=== PATIENT | male | born 1995 | race Caucasian/White ===

== ENCOUNTER 2024-06-23 17:06 | Inpatient (IN) | payer OTHER ==
[2024-06-23 17:33] VITALS: BMI 20.2
[2024-06-23] MEDS ORDERED: BENZONATATE 200 MG CAPSULE PO PRN (18:05)
[2024-06-23] MEDS ORDERED: POLYETHYLENE GLYCOL (HEALTHYLAX) 3350 17 GM PACKET PO PRN (18:05)
[2024-06-23] MEDS ORDERED: hydrOXYzine PAMOATE 25 MG CAPSULE (FP) PO PRN (18:05)
[2024-06-23] MEDS ORDERED: NALOXONE (NARCAN) HCL 4 MG/0.1 ML SPRAY NS PRN (18:05)
[2024-06-23] MEDS ORDERED: guaiFENesin 600 MG TABLET.ER (FP) PO PRN (18:05)
[2024-06-23] MEDS ORDERED: IBUPROFEN 400 MG TABLET (FP) PO PRN (18:05)
[2024-06-23] MEDS ORDERED: methaDONE HCL 10 MG TABLET (FOR DETOX USE ONLY) PO PRN (18:05)
[2024-06-23] MEDS ORDERED: IBUPROFEN 600 MG TABLET (FP) PO PRN (18:05)
[2024-06-23] MEDS ORDERED: MAG HYDROX/AL HYDROX/SIMETH 30 ML UNIT-DOSE CUP PO PRN (18:05)
[2024-06-23] MEDS ORDERED: NICOTINE POLACRILEX 2 MG GUM BUC PRN (18:05)
[2024-06-23] MEDS ORDERED: DICYCLOMINE HCL 10 MG CAPSULE PO PRN (18:05)
[2024-06-23] MEDS ORDERED: ACETAMINOPHEN 325 MG TABLET (FP) PO PRN (18:05)
[2024-06-23] MEDS ORDERED: BENZOCAINE/MENTHOL (CHLORASEPTIC ) LOZENGE MM PRN (18:05)
[2024-06-23] MEDS ORDERED: ONDANSETRON *ODT* 4 MG TABLET SL PRN (18:05)
[2024-06-23] MEDS ORDERED: LOPERAMIDE HCL 2 MG CAPSULE PO PRN (18:05)
[2024-06-23] MEDS ORDERED: MAGNESIUM HYDROX 2400MG/30ML ORAL SUSPENSION 30 ML CUP PO PRN (18:05)
[2024-06-23] MEDS ORDERED: BISMUTH SUBSALICYLATE 524 MG/30 ML PO PRN (18:05)
[2024-06-23] MEDS ORDERED: methaDONE HCL 10 MG TABLET (FOR DETOX USE ONLY) ONE (20:13)
[2024-06-23] MEDS: methaDONE HCL 10 MG TABLET (FOR DETOX USE ONLY) PO ONE (20:24)
[2024-06-23] MEDS: MELATONIN 5 MG TABLETS PO SCH (21:45)
[2024-06-23] MEDS: THIAMINE 100 MG TABLET PO SCH (21:45)
[2024-06-23] MEDS: diazePAM 5 MG TABLET PO PRN (21:47)
[2024-06-23] MEDS: cloNIDine HCL 0.1 MG TABLET PO PRN (21:47)
[2024-06-23] MEDS: METHOCARBAMOL 500 MG TABLET PO PRN (21:47)
[2024-06-24] MEDS: ALBUTEROL SO4 HFA INHALER IH SCH (07:44)
[2024-06-24] MEDS ORDERED: CARVEDILOL 6.25 MG TABLET (FP) PO SCH (10:00)
[2024-06-24 10:34] VITALS: RESP 16
[2024-06-24] MEDS: PRENATAL VITAMINS W/ FOLIC ACID TABLET (FP) PO SCH (10:45)
[2024-06-24] MEDS: NICOTINE 21 MG/24 HOURS TOPICAL PATCH TD SCH (10:45)
[2024-06-24] MEDS: levETIRAcetam 500 MG TABLET (FP) PO SCH (10:45)
[2024-06-24] MEDS: CARVEDILOL 6.25 MG TABLET (FP) PO SCH (10:45)
[2024-06-24 11:38] LABS: HEMATOCRIT 43.8 % (35.4-49); HEMOGLOBIN 14.8 GM/dL (11.7-16.9); MCH 30.4 pg (25.7-33.7); MCHC 33.7 g/dl (32.0-35.9); MEAN CELL VOLUME 90.2 fl (80-96); MEAN PLT VOLUME 6.7 fl (7.5-11.1); PLATELET COUNT 429 10^3/uL (134-434); RBC 4.86 M/mm3 (4.00-5.60); RDW 13.4 % (11.9-15.9); WHITE BLOOD COUNT 6.1 K/mm3 (4.0-10.0)
[2024-06-24 13:28] LABS: HIV INTERPRETATION NEGATIVE (NEGATIVE)
[2024-06-24 14:16] LABS: POTASSIUM 3.9 mmol/L (3.5-5.1)
[2024-06-24 14:24] LABS: ALBUMIN 3.3 g/dl (3.4-5.0); BLOOD UREA NITROGEN 12.7 mg/dL (7-18); CALCIUM 8.8 mg/dL (8.5-10.1)
[2024-06-24 14:27] LABS: CREATININE 0.8 mg/dL (0.55-1.3)
[2024-06-24 14:28] LABS: BILIRUBIN,TOTAL 0.4 mg/dL (0.2-1); TOT PROT 6.8 g/dl (6.4-8.2)
[2024-06-24 17:05] VITALS: BP 105/60; PULSE 68; TEMP 97.3
[2024-06-24] MEDS: NALOXONE (NYS OPIOID OVERDOSE PROGRAM) 4 MG/0.1 ML SPRAY NS SCH (19:50)
[2024-06-24] MEDS ORDERED: clonazePAM 1 MG ODT TABLETS SL SCH (22:00)
[2024-06-25] MEDS ORDERED: VILAZODONE HYDROCHLORIDE 20 MG TABLET PO SCH (10:00)
[2024-06-25] MEDS ORDERED: methaDONE HCL 10 MG TABLET (FOR DETOX USE ONLY) PO ONE (10:00)
[2024-06-27] MEDS ORDERED: methaDONE HCL 10 MG TABLET (FOR DETOX USE ONLY) PO ONE (10:00)
== END 2024-06-24 19:56 | disposition left against medical advice (07) | DRG 770 ==
LOC: YASAS 17:06 → Y3N 20:38
PROVIDERS: ADMIT Allergy & Immunology; ATTEND Surgery
PROC: HZ2ZZZZ Detoxification Services for Substance Abuse Treatment (ICD-10-PCS; principal; 2024-06-23)
DX: F11.23 Opioid dependence with withdrawal (principal); F14.20 Cocaine dependence, uncomplicated; F13.20 Sedative, hypnotic or anxiolytic dependence, uncomplicated; F17.210 Nicotine dependence, cigarettes, uncomplicated; F31.9 Bipolar disorder, unspecified; F41.1 Generalized anxiety disorder; F19.24 Other psychoactive substance dependence with psychoactive substance-induced mood disorder; G40.909 Epilepsy, unspecified, not intractable, without status epilepticus; J45.909 Unspecified asthma, uncomplicated
CPT/HCPCS: 36415; 80053; 80305; 80307; 85027; 86593; 86780; 87389; 93005; 93010

== ENCOUNTER 2024-08-30 12:15 | Inpatient (IN) | payer OTHER ==
[2024-08-30 13:28] VITALS: BMI 18.3
[2024-08-30] MEDS ORDERED: DICYCLOMINE HCL 10 MG CAPSULE PO PRN (15:57)
[2024-08-30] MEDS ORDERED: guaiFENesin 600 MG TABLET.ER (FP) PO PRN (15:57)
[2024-08-30] MEDS ORDERED: NICOTINE POLACRILEX 2 MG GUM BUC PRN (15:57)
[2024-08-30] MEDS ORDERED: hydrOXYzine PAMOATE 25 MG CAPSULE (FP) PO PRN (15:57)
[2024-08-30] MEDS ORDERED: NALOXONE (NARCAN) HCL 4 MG/0.1 ML SPRAY NS PRN (15:57)
[2024-08-30] MEDS ORDERED: POLYETHYLENE GLYCOL (HEALTHYLAX) 3350 17 GM PACKET PO PRN (15:57)
[2024-08-30] MEDS ORDERED: P-EPHED 60MG/TRIPROLIDI 2.5MG TABLET PO PRN (15:57)
[2024-08-30] MEDS ORDERED: IBUPROFEN 400 MG TABLET (FP) PO PRN (15:57)
[2024-08-30] MEDS ORDERED: BENZONATATE 200 MG CAPSULE PO PRN (15:57)
[2024-08-30] MEDS ORDERED: MAG HYDROX/AL HYDROX/SIMETH 30 ML UNIT-DOSE CUP PO PRN (15:57)
[2024-08-30] MEDS ORDERED: BENZOCAINE/MENTHOL (CHLORASEPTIC ) LOZENGE MM PRN (15:57)
[2024-08-30] MEDS ORDERED: MAGNESIUM HYDROX 2400MG/30ML ORAL SUSPENSION 30 ML CUP PO PRN (15:57)
[2024-08-30] MEDS ORDERED: NICOTINE POLACRILEX 2 MG LOZENGE BC PRN (15:57)
[2024-08-30] MEDS ORDERED: ALBUTEROL SO4 HFA INHALER IH PRN (17:05)
[2024-08-30] MEDS: CARVEDILOL 6.25 MG TABLET (FP) PO SCH (22:05)
[2024-08-30] MEDS: MELATONIN 5 MG TABLETS PO SCH (22:05)
[2024-08-30] MEDS: THIAMINE 100 MG TABLET PO SCH (22:05)
[2024-08-30] MEDS: clonazePAM 0.5 MG ODT TABLETS SL ONE (22:05)
[2024-08-30] MEDS: levETIRAcetam 500 MG TABLET (FP) PO SCH (22:05)
[2024-08-31] MEDS: cloNIDine HCL 0.1 MG TABLET PO SCH (09:28)
[2024-08-31] MEDS: methaDONE HCL 10 MG TABLET PO ONE (09:34)
[2024-08-31] MEDS: PRENATAL VITAMINS W/ FOLIC ACID TABLET (FP) PO SCH (09:34)
[2024-08-31] MEDS: EMTRICITABINE 200MG/TENOFOVIR 300MG PO SCH (10:38)
[2024-08-31] MEDS ORDERED: methaDONE HCL 10 MG TABLET PO PRN (11:12)
[2024-08-31 11:22] LABS: HEMATOCRIT 41.5 % (35.4-49); MCHC 33.7 g/dl (32.0-35.9); MEAN PLT VOLUME 6.9 fl (7.5-11.1); PLATELET COUNT 366 10^3/uL (134-434); RBC 4.66 M/mm3 (4.00-5.60); RDW 13.3 % (11.9-15.9); WHITE BLOOD COUNT 6.2 K/mm3 (4.0-10.0)
[2024-08-31 11:23] LABS: POTASSIUM 3.9 mmol/L (3.5-5.1)
[2024-08-31 11:25] LABS: ALBUMIN 3.2 g/dl (3.4-5.0); CALCIUM 8.8 mg/dL (8.5-10.1)
[2024-08-31 11:28] LABS: CREATININE 0.8 mg/dL (0.55-1.3)
[2024-08-31 11:30] LABS: BILIRUBIN,TOTAL 0.4 mg/dL (0.2-1); TOT PROT 6.4 g/dl (6.4-8.2)
[2024-08-31] MEDS: clonazePAM 1 MG ODT TABLETS SL ONE (11:38)
[2024-08-31 12:26] LABS: HIV INTERPRETATION NEGATIVE (NEGATIVE)
[2024-08-31] MEDS: VENLAFAXINE HCL 75 MG E.R. CAPSULES PO SCH (12:29)
[2024-08-31] MEDS: clonazePAM 1 MG ODT TABLETS SL SCH (22:29)
[2024-09-01] MEDS: LOPERAMIDE HCL 2 MG CAPSULE PO PRN (05:48)
[2024-09-01] MEDS ORDERED: methaDONE HCL 40 MG DISPERSABLE TABLET PO ONE (10:00)
[2024-09-01] MEDS: METHOCARBAMOL 500 MG TABLET PO PRN (17:22)
[2024-09-01] MEDS: BISMUTH SUBSALICYLATE 524 MG/30 ML PO PRN (17:23)
[2024-09-01] MEDS: ONDANSETRON *ODT* 4 MG TABLET SL PRN (17:24)
[2024-09-02] MEDS ORDERED: cloNIDine HCL 0.1 MG TABLET PO PRN
[2024-09-02] MEDS: methaDONE HCL 40 MG DISPERSABLE TABLET PO ONE (10:39)
[2024-09-02] MEDS: DIPHENOXYLATE 2.5/ATROPINE.025 1 COMBO TABLET PO ONE (10:45)
[2024-09-02] MEDS: IBUPROFEN 600 MG TABLET (FP) PO PRN (13:43)
[2024-09-03] MEDS ORDERED: methaDONE HCL 40 MG DISPERSABLE TABLET PO ONE (10:00)
[2024-09-03] MEDS ORDERED: levETIRAcetam 250 MG TABLET PO ONE (22:55)
[2024-09-04] MEDS ORDERED: levETIRAcetam 250 MG TABLET PO ONE ×2 (09:09→22:57)
[2024-09-04] MEDS: methaDONE 40 MG, methaDONE 10 MG PO ONE (09:21)
[2024-09-04] MEDS ORDERED: methaDONE HCL 40 MG DISPERSABLE TABLET PO ONE (10:00)
[2024-09-05] MEDS: ACETAMINOPHEN 325 MG TABLET (FP) PO PRN (05:45)
[2024-09-05 06:58] VITALS: PULSE 86
[2024-09-05] MEDS ORDERED: levETIRAcetam 250 MG TABLET PO ONE (09:17)
[2024-09-05 09:46] VITALS: BP 120/74; RESP 18; TEMP 97.6
[2024-09-05] MEDS ORDERED: methaDONE HCL 40 MG DISPERSABLE TABLET PO ONE (10:00)
== END 2024-09-05 10:28 | disposition home or self-care (01) | DRG 773 ==
LOC: YASAS 12:15 → Y6N 16:47
PROVIDERS: ADMIT Allergy & Immunology; ATTEND Allergy & Immunology
PROC: HZ2ZZZZ Detoxification Services for Substance Abuse Treatment (ICD-10-PCS; principal; 2024-08-30)
DX: F11.23 Opioid dependence with withdrawal (principal); F13.20 Sedative, hypnotic or anxiolytic dependence, uncomplicated; F17.210 Nicotine dependence, cigarettes, uncomplicated; F31.9 Bipolar disorder, unspecified; F41.1 Generalized anxiety disorder; I11.0 Hypertensive heart disease with heart failure; I50.9 Heart failure, unspecified; Z20.2 Contact with and (suspected) exposure to infections with a predominantly sexual mode of transmission; Z72.51 High risk heterosexual behavior
CPT/HCPCS: 36415; 80053; 80305; 80307; 85027; 86593; 86780; 86803; 87389; Q0162

== ENCOUNTER 2025-01-08 11:35 | Inpatient (IN) | payer OTHER ==
[2025-01-08 12:00] VITALS: BMI 25.1
[2025-01-08] MEDS ORDERED: LOPERAMIDE HCL 2 MG CAPSULE PO PRN (18:13)
[2025-01-08] MEDS ORDERED: MAGNESIUM HYDROX 2400MG/30ML ORAL SUSPENSION 30 ML CUP PO PRN (18:13)
[2025-01-08] MEDS ORDERED: guaiFENesin 600 MG TABLET.ER (FP) PO PRN (18:13)
[2025-01-08] MEDS ORDERED: BENZOCAINE/MENTHOL (CHLORASEPTIC ) LOZENGE MM PRN (18:13)
[2025-01-08] MEDS ORDERED: IBUPROFEN 400 MG TABLET (FP) PO PRN (18:13)
[2025-01-08] MEDS ORDERED: NALOXONE (NARCAN) HCL 4 MG/0.1 ML SPRAY NS PRN (18:13)
[2025-01-08] MEDS ORDERED: MAG HYDROX/AL HYDROX/SIMETH 30 ML UNIT-DOSE CUP PO PRN (18:13)
[2025-01-08] MEDS ORDERED: DICYCLOMINE HCL 10 MG CAPSULE PO PRN (18:13)
[2025-01-08] MEDS ORDERED: POLYETHYLENE GLYCOL (HEALTHYLAX) 3350 17 GM PACKET PO PRN (18:13)
[2025-01-08] MEDS ORDERED: BENZONATATE 200 MG CAPSULE PO PRN (18:13)
[2025-01-08] MEDS ORDERED: ONDANSETRON *ODT* 4 MG TABLET SL PRN (18:13)
[2025-01-08] MEDS ORDERED: ALBUTEROL SO4 HFA INHALER IH PRN (18:16)
[2025-01-08] MEDS: BACITRACIN 0.9 GM PACKET TP SCH (18:50)
[2025-01-08] MEDS: BISMUTH SUBSALICYLATE 524 MG/30 ML PO PRN (18:52)
[2025-01-08] MEDS: MELATONIN 5 MG TABLETS PO SCH (21:45)
[2025-01-08] MEDS: CARVEDILOL 6.25 MG TABLET (FP) PO SCH (21:45)
[2025-01-08] MEDS: SULFAMETHOXAZOLE/TRIMETHOPRIM 800MG/160MG D.S. TABLET PO SCH (21:45)
[2025-01-08] MEDS: levETIRAcetam 500 MG TABLET (FP) PO SCH (21:45)
[2025-01-08] MEDS: THIAMINE 100 MG TABLET PO SCH (21:45)
[2025-01-09] MEDS: PRENATAL VITAMINS W/ FOLIC ACID TABLET (FP) PO SCH (09:58)
[2025-01-09 10:44] LABS: MCHC 32.6 g/dl (32.3-36.5); MEAN CELL VOLUME 88.2 fl (79.0-92.2); MEAN PLT VOLUME 8.7 fl (9.4-12.4); RDW 12.7 % (11.9-15.3)
[2025-01-09 12:54] LABS: CO2 30 mmol/L (21-32); GLUCOSE,RANDOM 105 mg/dL (74-106)
[2025-01-09 12:55] LABS: SGPT/ALT 24 U/L (13-61)
[2025-01-09 12:56] LABS: SGOT/AST 16 U/L (15-37)
[2025-01-09 12:57] LABS: ALK PHOS 74 U/L (45-117); CREATININE 0.9 mg/dL (0.55-1.3)
[2025-01-09 12:58] LABS: TOT PROT 6.9 g/dl (6.4-8.2)
[2025-01-09] MEDS: METHOCARBAMOL 500 MG TABLET PO PRN (21:49)
[2025-01-10] MEDS: clonazePAM 1 MG ODT TABLETS SL ONE (17:40)
[2025-01-10] MEDS: clonazePAM 1 MG ODT TABLETS SL SCH (22:25)
[2025-01-11] MEDS: ACETAMINOPHEN 325 MG TABLET (FP) PO PRN (00:31)
[2025-01-11] MEDS: IBUPROFEN 600 MG TABLET (FP) PO PRN (02:48)
[2025-01-11] MEDS: hydrOXYzine PAMOATE 25 MG CAPSULE (FP) PO PRN (02:50)
[2025-01-11] MEDS: clonazePAM 1 MG ODT TABLETS SL ONE (12:30)
[2025-01-11 16:33] VITALS: BP 100/60; PULSE 80; RESP 16; TEMP 97.6
[2025-01-11] MEDS ORDERED: clonazePAM 1 MG ODT TABLETS SL SCH (22:00)
== END 2025-01-11 20:19 | disposition left against medical advice (07) | DRG 770 ==
LOC: YASAS 11:35 → Y3N 18:16
PROVIDERS: ADMIT Allergy & Immunology; ATTEND Allergy & Immunology
PROC: HZ2ZZZZ Detoxification Services for Substance Abuse Treatment (ICD-10-PCS; principal; 2025-01-08)
DX: F11.23 Opioid dependence with withdrawal (principal); F14.20 Cocaine dependence, uncomplicated; F13.20 Sedative, hypnotic or anxiolytic dependence, uncomplicated; F17.210 Nicotine dependence, cigarettes, uncomplicated; F41.1 Generalized anxiety disorder; G47.00 Insomnia, unspecified; L03.114 Cellulitis of left upper limb
CPT/HCPCS: 36415; 80053; 80305; 80307; 85027; 86593; 86780; 93005; 93010